=== PATIENT | male | born 1990 ===

== ENCOUNTER 2018-05-24 23:41 | Emergency (ER) | payer BC ==
[2018-05-25] MEDS ORDERED: Ketorolac Tromethamine 60 MG/2 ML VIAL ONE (01:16)
[2018-05-25] MEDS ORDERED: methylPREDNISolone Sod Succ/PF 125 MG/2 ML VIAL ONE (01:16)
== END 2018-05-25 02:11 | disposition home or self-care (01) ==
LOC: ERS 23:41
DX: K03.81 Cracked tooth (principal); F41.9 Anxiety disorder, unspecified; Z86.711 Personal history of pulmonary embolism; Z86.718 Personal history of other venous thrombosis and embolism
CPT/HCPCS: 96372; J1885; J2930